=== PATIENT | female | born 1980 | race Caucasian/White ===

== ENCOUNTER 2021-10-16 11:13 | Outpatient (CLI) | payer OTHER, SELFPAY ==
[2021-10-16 11:26] VITALS: BP 176/123; PULSE 97; RESP 18; TEMP 36.9; O2SAT 100; BMI 40.3
[2021-10-16] MEDS: 0.9% Saline Lock 10 ML Syringe IV (11:34)
[2021-10-16 12:28] VITALS: BP 154/103; PULSE 72; RESP 16; TEMP 37.3; O2SAT 99
[2021-10-16 13:19] VITALS: BP 178/100; PULSE 66; RESP 16; TEMP 36.8; O2SAT 100
== END 2021-10-16 13:28 | disposition home or self-care (01) ==
LOC: MS3OUT 11:14 → MS3 11:14
PROVIDERS: Referring Provider Nurse Practitioner Adult Health; Visit Provider Nurse Practitioner Adult Health
DX: Z23 Encounter for immunization (principal); U07.1 COVID-19
CPT/HCPCS: J7050; M0245; Q0245; A4216